=== PATIENT | female | born 1965 | race Caucasian/White ===

== ENCOUNTER 2016-11-15 09:33 | Day surgery (SDC) | payer BC, SELFPAY ==
--- NOTE | ~2016-11-15 | OP ---
Record Of Operation [facility] [address] [place]. [address] NAME: FLAQUITA ROSADO : 65 STATUS : [facility]#: [id number] AGE: 51 ADM/REG DATE : 11/15/16 MR#: [id number] REPORT SERV DATE: 11/16/16 DICTATED BY: FIDEL PARK DATE: 11/16/16 REPORT STATUS : Draft TRANSCRIBED BY: MODL DATE: 11/16/16 DATE OF PROCEDURE: 11/15/2016 PREOPERATIVE DIAGNOSIS: Left breast cancer. POSTOPERATIVE DIAGNOSIS: Left breast cancer. OPERATIONS PERFORMED: 1. Left superior medial segmentectomy. 2. [place] node biopsy. SURGEON: Fidel Park M.D. ANESTHESIA: General. ESTIMATED BLOOD LOSS: Less than 10 mL. IV FLUIDS: Adequate. INDICATION FOR PROCEDURE: Ms Rosado is a 51-year-old white female with a known left breast cancer. We discussed options of treatment. At this point, she has opted for breast conservation therapy. She understands that she will have significant volume discrepancy between the left and right breast. DESCRIPTION OF OPERATION: After appropriate sedation, the patient was prepped and draped in proper sterile fashion. Ultrasound probe was placed over the left breast. The lesion was seen at the approximately at the 11:30 position. An elliptical incision of skin was performed in the upper inner quadrant of the left breast. Subcutaneous flaps were developed circumferentially using finger palpation around the mass. This was taken down to the chest wall. The mass was delivered out of the wound. It was oriented with sutures and skin for pathology. Ultrasound of this area showed to my view, there are closest margin appeared to be the inferolateral aspect. We then excised a new margin for the inferolateral aspect and the sutures were placed on the new margin. This was passed off as permanent specimen. We then mobilized the inferior aspect of the breast and brought it up superiorly in the deep tissues. We then approximated the skin using interrupted 3-0 Vicryl sutures. We then turned our attention toward the left axilla. Neoprobe was placed in the left axilla. A hot area was encountered. A limited left axillary incision was performed. Subcutaneous tissues were incised down to the axillary fat. A hot node was encountered. It was dissected out using the Harmonic scalpel. It was placed in the back table, and noted to have a target count of 2040. We placed the Neoprobe back in the left axilla, a second node was encountered, noted to have a target count of 8232. This was placed on the back table and sent as permanent specimen. Both of these nodes were relatively soft. We then encountered a slightly enlarged node somewhat inferior. There was no uptake in it; however, we did go ahead and dissected out with the Harmonic scalpel, and this was nonsentinel node. At this point, we had palpated the remainder of the axilla. There were no palpable abnormalities. There was no significant uptake. We closed the deep tissues using interrupted 3-0 Vicryl Record Of Operation [address] [address] NAME: FLAQUITA ROSADO : 65 STATUS : [facility] PAT#: [id number] AGE: 51 ADM/REG DATE : 11/15/16 MR#: [id number] REPORT SERV DATE: 11/16/16 DICTATED BY: FIDEL PARK DATE: 11/16/16 REPORT STATUS : Draft TRANSCRIBED BY: RAD DATE: 11/16/16 sutures. The skin was closed using interrupted 3-0 Vicryl sutures. Dressings were then placed. The patient was taken to the recovery room in satisfactory condition. ANUP/RAD Fidel Park M.D. / [id number] CC: Ellen Noguera M.D.
[~2016-11-15 09:33] MED LIST: LISINOPRIL40 MG PO
[2017-01-19] MEDS ORDERED: NORV25 PO (09:25)
[2017-01-19] MEDS ORDERED: ADVIL PO (09:26)
[2017-02-09] MEDS ORDERED: TAMOXIFEN20 M1 PO (08:25)
== END 2016-11-15 18:18 | disposition home or self-care (01) ==
LOC: SDC 09:33
PROVIDERS: Specialist
PROC: 07B60ZX Excision of Left Axillary Lymphatic, Open Approach, Diagnostic (ICD-10-PCS; 2016-11-15)
PROC: 0HBU0ZZ Excision of Left Breast, Open Approach (ICD-10-PCS; principal; 2016-11-15 12:45)
DX: C50.912 Malignant neoplasm of unspecified site of left female breast (principal); I10 Essential (primary) hypertension; F17.210 Nicotine dependence, cigarettes, uncomplicated; Z90.89 Acquired absence of other organs
CPT/HCPCS: 78195; 80048; 84703; 85014; 85018; 88305; 88307; 88342; 93005; A9270-GY; A9541; J0690; J1170; J2250; J2405; J3010; Q9968

== ENCOUNTER 2017-01-21 10:19 | Observation (INO) | payer BC ==
[2017-01-17 16:24] LABS: BASOPHILS 0.2 %; BASOPHILS ABSOLUTE 0.02 10/3/uL (0.0-0.16); EOSINOPHILS 0.5 %; EOSINOPHILS ABSOLUTE 0.06 10/3/uL (0.0-0.53); HEMATOCRIT 39.2 % (36.0-48.0); HEMOGLOBIN 13.2 g/dL (12.0-16.0); IMMATURE GRANULOCYTES 0.3 %; IMMATURE GRANULOCYTES ABSOLUTE 0.03 10/3/uL (0.0-0.11); LYMPHOCYTES 27.6 %; LYMPHOCYTES ABSOLUTE 3.08 10/3/uL (0.67-4.30); MEAN CORPUS HGB CONC 33.7 g/dL (32.0-36.0); MEAN CORPUSCULAR HEMOGLOB 29.1 pg (26.0-34.0); MEAN CORPUSCULAR VOLUME 86.5 fL (80-100); MEAN PLATELET VOLUME 10.3 fL (9.2-13.0); MONOCYTES 5.5 %; MONOCYTES ABSOLUTE 0.61 10/3/uL (0.21-1.20); NEUTROPHILS 65.9 %; NEUTROPHILS ABSOLUTE 7.36 10/3/uL (2.02-8.40); PLATELET COUNT 465 10/3/uL (150-400); RBC DISTRIBUTION WIDTH 13.1 % (12.0-16.0); RED CELL COUNT 4.53 10/6/uL (4.0-5.6); WHITE BLOOD CELLS 11.2 10/3/uL (4.5-10.5)
[2017-01-17 16:25] LABS: MANUAL DIFF NO %
[2017-01-17 16:41] LABS: PARTIAL THROMBO TIME 28.1 SEC (22.5-37.2)
[2017-01-17 18:56] LABS: PFA (COL/EPI) 121 SEC (72-180)
--- NOTE | ~2017-01-21 | OP ---
Record Of Operation [facility] [address] [place]. [address] NAME: FLAQUITA LAM : 65 STATUS : DIS Blue PAT#: [id number] AGE: 51 ADM/REG DATE : 01/21/17 MR#: [id number] REPORT SERV DATE: 01/22/17 DICTATED BY: FRANCINE VALLE DATE: 01/22/17 REPORT STATUS : Draft TRANSCRIBED BY: RAD DATE: 01/22/17 DATE OF PROCEDURE: 01/21/2017 PREOPERATIVE DIAGNOSIS: Surgical absence of the breast and history of breast cancer. POSTOPERATIVE DIAGNOSIS: Surgical absence of the breast and history of breast cancer. PROCEDURE: Bilateral tissue expansion, acellular dermal matrix reconstruction of a circumvertical mastectomy on the left, and a right areolar complex sparing mastectomy. INDICATIONS AND FINDINGS OF THE PROCEDURE: This 51-year-old female, is status post partial mastectomy on the left. She is now appropriate for the above-described operative intervention. DETAILS OF THE PROCEDURE: The patient presents on the operating table after a circumvertical mastectomy on the left and inframammary crease based areolar complex sparing mastectomy on the right. Our attention was initially turned to the right. She was thoroughly irrigated with Hibiclens solution, ropivacaine block was then obtained. The pectoralis muscle was released and appropriately reconstituted sheet of acellular dermal matrix was then sewn to the cut edge of the pectoralis muscle. The purpose of the acellular dermal matrix was to supplement the soft tissue envelope, recreate the inframammary crease, and stabilize the position of the tissue trimmer hand. A 500 mL tissue trimmer hand was then placed behind the muscle AlloDerm construct. The AlloDerm was sewn tightly around its edge and the tissue trimmer hand was tab fixed to the chest wall. The implant was then filled to 300. Inferior drains were placed. She was thoroughly irrigated with Hibiclens solution, she was closed in a progressive tension fashion with multiple layers of 3-0 PDS and Monocryl through to an intracuticular in the skin. A warm dressing was placed, then our attention were turned contralaterally. The pectoralis muscle was released and appropriately reconstituted sheet of acellular dermal matrix was then sewn to the cut edge of the pectoralis muscle, for the identical reason as that was used contralaterally. A 500 mL tissue trimmer hand was then placed behind the muscle AlloDerm construct, tab fixed to the chest wall, and secured with the AlloDerm. It was on this side, however, only filled to 100. Inferior drains were placed, she was blocked with ropivacaine and then a progressive tension closure of 3-0 PDS and Monocryl was performed. She was subsequently cleansed with peroxide. Nitroglycerin paste dry dressings were placed and she was remanded to the recovery room in stable condition. SPONGE COUNTS: All sponge and needle counts were correct. ROGER/RAD Francine Valle M.D. / [id number] Record Of [address] [address] NAME: FLAQUITA LAM : 65 STATUS : DIS Blue PAT#: [id number] AGE: 51 ADM/REG DATE : 01/21/17 MR#: [id number] REPORT SERV DATE: 01/22/17 DICTATED BY: FRANCINE VALLE DATE: 01/22/17 REPORT STATUS : Draft TRANSCRIBED BY: RAD DATE: 01/22/17 CC: Ellen Noguera M.D.
--- NOTE | ~2017-01-21 | OP ---
Record Of Operation [facility] [address] [place]. [address] NAME: FLAQUITA ROSADO : 65 STATUS : DIS Blue PAT#: [id number] AGE: 51 ADM/REG DATE : 01/21/17 MR#: [id number] REPORT SERV DATE: 01/24/17 DICTATED BY: FIDEL PARK DATE: 01/24/17 REPORT STATUS : Draft TRANSCRIBED BY: MODL DATE: 01/24/17 DATE OF PROCEDURE: 01/21/2017 PREOPERATIVE DIAGNOSIS: Left breast cancer status post lumpectomy with positive margins. POSTOPERATIVE DIAGNOSIS: Left breast cancer status post lumpectomy with positive margins. OPERATION PERFORMED: Left total mastectomy with right prophylactic nipple-sparing mastectomy. SURGEON: Fidel Park M.D. ANESTHESIA: General. ESTIMATED BLOOD LOSS: Less than 10 mL. IV FLUIDS: Adequate. INDICATION FOR PROCEDURE: Ms Rosado is a 51-year-old white female, who has recently undergone a left lumpectomy and sentinel node biopsy for invasive ductal carcinoma. She had positive margins on pathology. She is brought to the operating room today for a left completion mastectomy. In addition, she has a desire for preventative right mastectomy. She has been brought to the operating room for the above-mentioned procedure. DESCRIPTION OF OPERATION: After appropriate sedation, the patient was prepped and draped in appropriate sterile fashion. An inverted teardrop incision was made around the left nipple- areolar complex. Subcutaneous flaps were developed circumferentially, superiorly to the level of the clavicle, medial to the level of sternum, inferior to the inframammary fold, laterally to the level of latissimus. The breast was then taken off the chest wall using cautery up to the level of the axillary tail. It was transected using cautery at this point. Specimen was then passed off as a left breast with suture placed in the axillary tail. Hemostasis was obtained. We evaluated the flaps, which were uniform and viable. We then turned our attention towards the right side. A right inframammary fold incision was performed. The breast was then taken off the chest wall using cautery up to the level of the clavicle. We then developed subcutaneous flaps using the plasma blade. The flaps were taken up to the level of the dermis underneath the nipple-areolar complex. The remainder of the flaps, we left subcutaneous fat. This was taken to the level of the sternum medially, the clavicle superiorly, and the latissimus laterally. At this point, the entire breast was mobilized. A suture was placed in the right axillary tail. We also placed a suture over the nipple-areolar complex for orientation. This was passed off as the right breast. We then evaluated our flaps, which were once again uniform and viable. Hemostasis was obtained. At this point, the procedure was turned over to Dr. Valle for reconstruction. Record Of Operation [address] [address] NAME: FLAQUITA ROSADO : 65 STATUS : DIS Blue PAT#: [id number] AGE: 51 ADM/REG DATE : 01/21/17 MR#: [id number] REPORT SERV DATE: 01/24/17 DICTATED BY: FIDEL PARK DATE: 01/24/17 REPORT STATUS : Draft TRANSCRIBED BY: RAD DATE: 01/24/17 ANUP/RAD Fidel Park M.D. / [id number] CC: Ellen Noguera M.D.
[~2017-01-21 10:19] MED LIST changes: +ADVIL PO; +NORV25 PO
[2017-01-21 10:58] LABS: A/G RATIO 1.1 (0.7-1.9); ALBUMIN 4.1 G/DL (3.5-5.0); ALKALINE PHOSPHATASE 104 U/L (45-117); BUN (BLOOD UREA NITROGEN) 15 MG/DL (6-23); CHLORIDE, SERUM 106 MMOL/L (96-112); CO2 (CARBON DIOXIDE) 28 MMOL/L (24-34); CREATININE 0.85 MG/DL (0.55-1.02); GFR AFRICAN AMERICAN 92 ML/MIN (>=60); GFR NON AFRICAN AMERICAN 79 ML/MIN (>=60); GLOBULIN 3.7 G/DL (2.5-4.1); GLUCOSE, SERUM 104 MG/DL (60-99); POTASSIUM, SERUM 4.7 MMOL/L (3.5-5.3); SGOT(AST) 8 U/L (5-40); SGPT(ALT) 11 U/L (5-65); SODIUM, SERUM 140 MMOL/L (135-148); TOTAL BILIRUBIN 0.4 MG/DL (0-1.2); TOTAL PROTEIN 7.8 G/DL (6.0-8.5)
[2017-01-22] MEDS ORDERED: MOMUD PO (11:03)
[2017-01-22] MEDS ORDERED: ALEVE220 MG PO (11:03)
[2017-01-22] MEDS ORDERED: AT25 PO (11:04)
[2017-01-22] MEDS ORDERED: K500 PO (11:04)
[2017-01-22] MEDS ORDERED: PERCOCET 7.5/321 TAB PO (11:05)
[2017-02-09] MEDS ORDERED: TAMOXIFEN20 M1 PO (08:25)
== END 2017-01-22 13:47 | disposition home or self-care (01) ==
LOC: SDC 10:19 → SDC/OF 17:10 → 5SO 18:02
PROVIDERS: Specialist; Surgery Surgery of the Hand
PROC: 0HTV0ZZ Resection of Bilateral Breast, Open Approach (ICD-10-PCS; 2017-01-21)
PROC: 0HTU0ZZ Resection of Left Breast, Open Approach (ICD-10-PCS; 2017-01-21)
PROC: 0HTT0ZZ Resection of Right Breast, Open Approach (ICD-10-PCS; 2017-01-21)
PROC: 0HHU0NZ Insertion of Tissue Expander into Left Breast, Open Approach (ICD-10-PCS; principal; 2017-01-21 12:00)
PROC: 0HHV0NZ Insertion of Tissue Expander into Bilateral Breast, Open Approach (ICD-10-PCS; 2017-01-21 12:00)
DX: C50.912 Malignant neoplasm of unspecified site of left female breast (principal); F17.200 Nicotine dependence, unspecified, uncomplicated; I10 Essential (primary) hypertension
CPT/HCPCS: 71020; 80053; 84703; 85025; 85576; 85610; 85730; 88307; 93005; 96374; 96375; 96376; A9270-GY; C1769; C1789; G0378; J0690; J1885; J2250; J2270; J2370; J2405; J2710; J2795; J3010; Q4116

== ENCOUNTER 2017-02-11 12:52 | Day surgery (SDC) | payer BC ==
[2017-02-09 17:39] LABS: BASOPHILS 0.3 %; BASOPHILS ABSOLUTE 0.02 10/3/uL (0.0-0.16); EOSINOPHILS 3.3 %; EOSINOPHILS ABSOLUTE 0.25 10/3/uL (0.0-0.53); HEMATOCRIT 36.1 % (36.0-48.0); HEMOGLOBIN 12.1 g/dL (12.0-16.0); IMMATURE GRANULOCYTES 0.3 %; IMMATURE GRANULOCYTES ABSOLUTE 0.02 10/3/uL (0.0-0.11); LYMPHOCYTES 41.7 %; MEAN CORPUS HGB CONC 33.5 g/dL (32.0-36.0); MEAN CORPUSCULAR HEMOGLOB 29.1 pg (26.0-34.0); MEAN CORPUSCULAR VOLUME 86.8 fL (80-100); MEAN PLATELET VOLUME 9.8 fL (9.2-13.0); MONOCYTES 7.2 %; MONOCYTES ABSOLUTE 0.55 10/3/uL (0.21-1.20); NEUTROPHILS 47.2 %; NEUTROPHILS ABSOLUTE 3.63 10/3/uL (2.02-8.40); PLATELET COUNT 520 10/3/uL (150-400); RBC DISTRIBUTION WIDTH 13.4 % (12.0-16.0); RED CELL COUNT 4.16 10/6/uL (4.0-5.6); WHITE BLOOD CELLS 7.7 10/3/uL (4.5-10.5)
[2017-02-09 17:42] LABS: MANUAL DIFF NO %
[2017-02-09 17:55] LABS: BUN (BLOOD UREA NITROGEN) 12 MG/DL (6-23); CALCIUM, SERUM 9.3 MG/DL (8.5-10.4); CHLORIDE, SERUM 107 MMOL/L (96-112); CO2 (CARBON DIOXIDE) 29 MMOL/L (24-34); GFR AFRICAN AMERICAN 116 ML/MIN (>=60); GFR NON AFRICAN AMERICAN 100 ML/MIN (>=60); GLUCOSE, SERUM 99 MG/DL (60-99); POTASSIUM, SERUM 4.1 MMOL/L (3.5-5.3); SODIUM, SERUM 142 MMOL/L (135-148)
[2017-02-09 17:59] LABS: PFA (COL/EPI) 112 SEC (72-180)
[2017-02-09 18:12] LABS: INTERNATIONAL NORMAL RATI 0.9 UNITS (-); PROTIME (NOT ORD) 12.1 SEC (12.0-14.5)
--- NOTE | ~2017-02-11 | OP ---
Record Of Operation [facility] [address] [place]. [address] NAME: FLAQUITA LAM : 65 STATUS : DIS IN PAT#: [id number] AGE: 51 ADM/REG DATE : 02/11/17 MR#: [id number] REPORT SERV DATE: 02/12/17 DICTATED BY: FRANCINE VALLE DATE: 02/12/17 REPORT STATUS : Draft TRANSCRIBED BY: MODJacqueline DATE: 02/12/17 DATE OF PROCEDURE: 02/11/2017 PREOPERATIVE DIAGNOSIS: Necrosis of nipple-areolar complex post breast cancer surgery. POSTOPERATIVE DIAGNOSIS: Necrosis of nipple-areolar complex post breast cancer surgery. PROCEDURE: Nipple-areolar complex excision and revision of mastectomy incision site. INDICATIONS AND FINDINGS OF THE PROCEDURE: This 51-year-old female is status post a right nipple-areolar complex sparing mastectomy and a left circumvertical mastectomy. She suffered a through and through necrosis of the right nipple areolar complex. She is appropriate for a nipple-areolar complex excision. DETAILS OF THE PROCEDURE: The patient was brought to the operating room. After adequate sedation was achieved, she was prepped and draped in the usual sterile fashion for the above described procedure. Her old drain was removed. Markings were then placed around the necrotic area of her nipple-areolar complex, and markings were placed around the necrotic area of her mastectomy incision. These were then full-thickness excised formally through to the level of the underlying AlloDerm and the mastectomy incision through to the level of the underlying profuse fat. A rent was then made in her AlloDerm and she was thoroughly irrigated with Hibiclens solution. A 10-Yakut drain was then placed into the space between her tissue toolroom attendant and the acellular dermal matrix and about a centimeter of it was brought out through the acellular dermal matrix. The rent in the acellular dermal matrix was then closed. The inframammary crease or mastectomy incision was then closed with multiple layers of 3-0 Monocryl through to an intracuticular in the skin. The site of the nipple-areolar complex excision was closed with a deep layer of 3-0 Monocryl and then multiple layers of Monocryl through to an intracuticular in the skin. A second irrigation of Hibiclens was then passed up the drain and allowed to stay in place for at least 5 minutes prior to it being evacuated into her Camacho-Taveras bulb. She was cleansed with peroxide, dressed with bacitracin and dry dressing, and remanded to the recovery room in stable condition. All sponge and needle counts were correct. ROGER/RAD Francine Vlale M.D. / [id number] CC: Ellen Fournier M.D.
[~2017-02-11 12:52] MED LIST changes: +ALEVE220 MG PO; +AT25 PO; +K500 PO; +MOMUD PO; +PERCOCET 7.5/321 TAB PO; +TAMOXIFEN20 M1 PO
== END 2017-02-11 18:57 | disposition home or self-care (01) ==
LOC: SDC 12:52
PROVIDERS: Surgery Surgery of the Hand
PROC: 0HWU0JZ Revision of Synthetic Substitute in Left Breast, Open Approach (ICD-10-PCS; 2017-02-11)
PROC: 0HBX0ZZ Excision of Left Nipple, Open Approach (ICD-10-PCS; principal; 2017-02-11 14:45)
DX: L76.82 Other postprocedural complications of skin and subcutaneous tissue (principal); N61.1 Abscess of the breast and nipple; N64.1 Fat necrosis of breast; I10 Essential (primary) hypertension; F32.9 Major depressive disorder, single episode, unspecified; Z85.3 Personal history of malignant neoplasm of breast; Z79.2 Long term (current) use of antibiotics; Z79.1 Long term (current) use of non-steroidal anti-inflammatories (NSAID); Z79.810 Long term (current) use of selective estrogen receptor modulators (SERMs); Z79.899 Other long term (current) drug therapy; Z87.891 Personal history of nicotine dependence; Z90.89 Acquired absence of other organs; Z90.13 Acquired absence of bilateral breasts and nipples
CPT/HCPCS: 80048; 84703; 85025; 85576; 85610; 85730; 88305; A9270-GY; J0690; J1885; J2250; J2405; J3010